=== PATIENT | female | born 1960 | race Caucasian/White ===

== ENCOUNTER → 2018-04-16 | Outpatient (CLI) | payer OTHER ==
[~2018-04-16] MED LIST: AUGMENTIN 875875 MG PO; CIPROFLOXACIN500 M1 PO; COLACE100 MG PO; COREG12.5 MG PO; CYCLOBENZAPRINE10 MG PO; DARVOCET-N 1001 EACH PO; FLOMAX0.4 MG PO; LISINOPRIL10 MG PO; NORCO 5-325 TA1 EACH PO; TYLENOL325 MG PO; ZOFRAN4 MG PO; [UNRECOGNIZED DRUG - REMARK]
== END ==
LOC: M.RAD 13:45
DX: Z12.31 Encounter for screening mammogram for malignant neoplasm of breast (principal)